=== PATIENT | male | born 1970 | race Caucasian/White ===

== ENCOUNTER → 2017-01-10 | Day surgery (SDC) | payer OTHER ==
[2016-12-26 11:06] VITALS: Ht 190.5 cm; Wt 102.3 kg
[~2017-01-10] VITALS: Ht 190.5 cm; Wt 102.3 kg
[~2017-01-10] MED LIST: ALFU10TA30 PO; ATROPINE SULFATE 0.1 MG/ML 5ML SYR IV PRN; BUPIVACAINE/EPINEPHRINE 0.5% MPF 1:200,000 30 ML VIAL ONE; CEFAZOLIN 2000 MG/60 ML D5W IV SCH; DEXAMETHASONE SOD INJ 4 MG/ML VIAL ONE; EpHEDrine SULFATE INJ 50 MG/ML AMP IV PRN; FENTANYL CITRATE INJ 50 MCG/1 ML 2 ML VIAL IV PRN; FENTANYL CITRATE INJ 50 MCG/1 ML 2 ML VIAL ONE; GLYCOPYRROLATE INJ 0.2 MG/ML VIAL ONE; HEPARIN SOD 5000 UNIT/0.5 ML CARP SQ SCH; HYDR-5688 PO; HYDROCODONE/ACETAMOPHEN 5/325MG TAB PO PRN; LACTATED RINGER'S 1000ML 1,000 ML IV SCH; LIDOCAINE HCL 2% 2 ML VIAL (20MG/ML) ONE; LORA-741 PO; MIDAZOLAM HCL 1 MG/ML 2ML VIAL ONE; MoRPHine SULFATE 4 MG/ML 1 ML CARP\\VIAL IV PRN; NEOSTIGMINE METHYLSULFATE 5 MG/5 ML SYR ONE; ONDANSETRON INJ 2 MG/ML 2 ML VIAL IV PRN; ONDANSETRON INJ 2 MG/ML 2 ML VIAL ONE; PROPOFOL IV EMULSION 10 MG/ML 20 ML VIAL IV ONE; ROCURONIUM BROMIDE 10 MG/ML 5 ML VIAL ONE; SUCCINYLCHOLINE 100MG/5ML SYR IV ONE
--- NOTE | 2017-01-10 06:50 | History & Physical Bridge Note ---
H&P Re-Evaluation Bridge Note: I have examined the patient, reviewed the History & Physical and in the interval since the performance of the History & Physical I have noted the following changes of clinical significance: No changes noted
--- NOTE | 2017-01-10 06:51 | [facility] Operative Report ---
Operative Report Operative Date Jan 10, 2017. Pre-Operative Diagnosis b/l inguinal hernias Post-Operative Diagnosis same Procedure(s) Performed open b/l inguinal hernia repair with mesh Findings b/l inguinal hernias Anesthesia general Complication(s) None Disposition Recovery Room / PACU I attest to the content of the Intraoperative Record and any orders documented therein. Any exceptions are noted below.
--- NOTE | 2017-01-10 06:54 | Discharge Instructions ---
Discharge Instructions Admission Reason for Admission: bilateral Inguinal Hernia Discharge Discharge Diagnosis / Problem: bilateral inguinal hernias Discharge Goals Goal(s): Decrease discomfort, Improve function Activity Recommendations Activity Limitations: as noted below Lifting Limitations: no more than 10 pounds Exercise/Sports Limitations: until after follow-up appointment May Resume Sexual Activity: after follow-up appointment Shower/Bathe: tomorrow . Instructions / Follow-Up Instructions / Follow-Up follow up dr. ott in 1-2 weeks or as scheduled. Current Hospital Diet Patient's current hospital diet: Discharge Diet Recommended Diet: Regular Diet Procedures Procedures Performed: open bilateral inguinal hernia repairs with mesh Pending Studies Studies pending at discharge: no Medical Emergencies . Who to Call and When: Medical Emergencies: If at any time you feel your situation is an emergency, please call 911 immediately. . Non-Emergent Contact Non-Emergency issues call your: Primary Care Provider, Surgeon Call Non-Emergent contact if: temperature is above 101, wound has increased drainage, wound has increased redness, wound has increased pain . "Provider Documentation" section prepared by Favian Ott. VTE Core Measure Inpt VTE Proph given/why not?: SCD's
--- NOTE | 2017-01-10 09:13 | OPERATIVE REPORT ---
DATE OF OPERATION: 01/10/2017 PREOPERATIVE DIAGNOSIS: Bilateral inguinal hernias. POSTOPERATIVE DIAGNOSIS: 1. Bilateral direct inguinal hernias. 2. Bilateral cord lipomas. PROCEDURE: 1. Open bilateral inguinal hernia repair with mesh. 2. Excision of bilateral cord lipomas. SURGEON: Dr. Ott. FINANCIAL SALES REPRESENTATIVE: Iftikhar Mckeon PA-C. ESTIMATED BLOOD LOSS: Approximately 20 mL. COMPLICATIONS: No immediate. ANESTHESIA: Laryngeal mask airway converted during the procedure to general with intubation. COMPLICATIONS: No immediate. OPERATIVE NOTE: After informed consent was obtained, the patient was taken to the operating suite and placed in supine position. Originally laryngeal mask airway was placed; however, during the procedure because of muscular tightness and breathing issues they converted to a full intubation. Once this was performed, the lower abdomen was shaved and sterilely prepped and draped in usual fashion. I began on the right side. I made an incision with 15 blade scalpel in the inguinal region and carried it down through the soft tissue using electrocautery. The external oblique aponeurosis was skeletonized and a small incision was made in it with a fresh blade. This was extended distally through the external ring using Metzenbaum scissors as well as for several centimeters proximally. Once in the inguinal canal, we bluntly dissected the cord and cord structures free from surrounding structures. I was able to bluntly get my finger around the cord structures and elevate them off the pubic bone and place a Natasha around them. As soon as we did this, we noted a rather large direct inguinal defect. In fact, the entire floor of the inguinal canal was a laxity with protrusion of hernia. This was easily reducible. We did inspect the cord and cord contents. There was no indirect hernia defect; however, there was a moderate size cord lipoma. We were able to take this off the cord structures using small amounts of electrocautery as well as traction countertraction. We clamped it off at its neck and excised it, tied it off with 3-0 silk and passed off the lipoma. We thoroughly irrigated the wound. We then placed a polypropylene ferro holed mesh as an onlay. It was secured distally to Fabricio's ligament, laterally along the shelving portion of Poupart's ligament and medially along the midline musculature. The "arms" of the mesh were wrapped around behind the cord and cord structures and again secured to underlying muscle. At the end of procedure the mesh laid tension free without impinging on the cord. We did another irrigation and then injected Marcaine around the edges of the mesh for postoperative analgesia. At the end of the procedure, there was adequate hemostasis. We closed the external oblique aponeurosis with 2-0 Vicryl in a running fashion. Soft tissue was irrigated and closed using 3-0 Vicryl and 4-0 Monocryl was used to close the skin. Some additional Marcaine was injected around the incision itself for postoperative analgesia and Dermabond glue used as a dressing. I then switched to the other side. We essentially performed the exact same procedure. I made an inguinal incision with a new blade and carried it down through the soft tissue and skeletonize the external oblique aponeurosis. Again, a fresh scalpel was used to open it and was extended with Metzenbaum scissors through the ring as well as several centimeters proximally. With the exact same scenario after I dissected the cord off the pubic bone and placed a Natasha around it there was a very large direct defect. We did inspect the cord and cord structures and again there was a lipoma. The lipoma on the left side was smaller than the one on the right side but nonetheless we took it down, excised it in similar fashion. We inspected the cord for indirect hernia sac and again there was no evidence of this. We thoroughly irrigated the wound and used the same polypropylene mesh, securing it to the same locations, Fabricio's ligament distally, shelving portion of the inguinal ligament laterally and the musculature medially. Again, we placed the arms of the mesh behind the cord structures and secured it to underlying muscle. There was no tension on the cord itself and the mesh was nice and tension free. Final irrigation was performed. Again, we injected Marcaine around the edges of the mesh for analgesia. We then closed the external oblique aponeurosis with 2-0 Vicryl in a running fashion. Soft tissue was irrigated and closed using 3-0 Vicryl and skin was closed using 4-0 Monocryl. Marcaine was also injected around the skin and Dermabond glue used as a dressing. The patient was awakened, extubated, and transferred to recovery in stable condition. I attest to the content of the Intraoperative Record and any orders documented therein. Any exceptio ns are noted below.
[2017-01-10 09:43] VITALS: TEMP 36.5
[2017-01-10 10:41] VITALS: BP 119/77; PULSE 71; O2SAT 95
--- NOTE | 2017-01-10 10:46 | Anesthesia Progress Nt - [facility] ---
Anesthesia Post Op Note Date & Time Jan 10, 2017 at 10:46 Vital Signs Pain Intensity: 0 Vital Signs Past 12 Hours Date Time Temp Pulse Resp B/P Pulse Ox O2 Delivery O2 Flow Rate FiO2 01/10/17 10:41 71 16 119/77 95 Room Air 01/10/17 10:16 85 16 120/81 94 Room Air 01/10/17 09:43 36.5 95 16 110/72 95 Room Air 01/10/17 09:30 98 13 95 01/10/17 09:30 98 13 01/10/17 09:29 110/80 01/10/17 09:25 97 12 01/10/17 09:25 97 12 95 01/10/17 09:24 107/79 01/10/17 09:20 91 13 99 01/10/17 09:20 91 13 01/10/17 09:19 Room Air 01/10/17 09:19 122/79 01/10/17 09:15 98 19 96 01/10/17 09:15 92 19 01/10/17 09:14 120/76 01/10/17 09:10 100 15 01/10/17 09:10 101 15 98 01/10/17 09:09 114/84 01/10/17 09:05 102 16 01/10/17 09:05 102 16 97 01/10/17 09:04 106/79 01/10/17 09:00 98 21 01/10/17 09:00 96 21 94 01/10/17 08:59 114/80 01/10/17 08:55 102 18 01/10/17 08:55 102 18 97 01/10/17 08:54 106/65 01/10/17 08:53 118/78 01/10/17 08:50 36.9 101 16 118/78 98 Diffusion Mask 6 01/10/17 06:46 36.5 85 16 121/85 96 Room Air Notes Mental Status: alert / awake / arousable, participated in evaluation Pt Amnestic to Procedure: Yes Nausea / Vomiting: adequately controlled Pain: adequately controlled Airway Patency, RR, SpO2: stable & adequate BP & HR: stable & adequate Hydration State: stable & adequate Anesthetic Complications: no major complications apparent
== END | disposition home or self-care (01) ==
LOC: X.SURG 06:30
PROVIDERS: ATTEND Surgery
DX: K40.20 Bilateral inguinal hernia, without obstruction or gangrene, not specified as recurrent (principal); D17.6 Benign lipomatous neoplasm of spermatic cord; M62.08 Separation of muscle (nontraumatic), other site; N40.0 Benign prostatic hyperplasia without lower urinary tract symptoms; Z87.891 Personal history of nicotine dependence

== ENCOUNTER → 2017-03-25 | Outpatient (CLI) | payer OTHER ==
[~2017-03-25] MED LIST changes: +ALFU10TA2 PO; -ALFU10TA30 PO; -ATROPINE SULFATE 0.1 MG/ML 5ML SYR IV PRN; -BUPIVACAINE/EPINEPHRINE 0.5% MPF 1:200,000 30 ML VIAL ONE; -CEFAZOLIN 2000 MG/60 ML D5W IV SCH; -DEXAMETHASONE SOD INJ 4 MG/ML VIAL ONE; -EpHEDrine SULFATE INJ 50 MG/ML AMP IV PRN; -FENTANYL CITRATE INJ 50 MCG/1 ML 2 ML VIAL IV PRN; -FENTANYL CITRATE INJ 50 MCG/1 ML 2 ML VIAL ONE; -GLYCOPYRROLATE INJ 0.2 MG/ML VIAL ONE; -HEPARIN SOD 5000 UNIT/0.5 ML CARP SQ SCH; -HYDROCODONE/ACETAMOPHEN 5/325MG TAB PO PRN; -LACTATED RINGER'S 1000ML 1,000 ML IV SCH; -LIDOCAINE HCL 2% 2 ML VIAL (20MG/ML) ONE; -MIDAZOLAM HCL 1 MG/ML 2ML VIAL ONE; -MoRPHine SULFATE 4 MG/ML 1 ML CARP\\VIAL IV PRN; -NEOSTIGMINE METHYLSULFATE 5 MG/5 ML SYR ONE; -ONDANSETRON INJ 2 MG/ML 2 ML VIAL IV PRN; -ONDANSETRON INJ 2 MG/ML 2 ML VIAL ONE; -PROPOFOL IV EMULSION 10 MG/ML 20 ML VIAL IV ONE; -ROCURONIUM BROMIDE 10 MG/ML 5 ML VIAL ONE; -SUCCINYLCHOLINE 100MG/5ML SYR IV ONE
== END | disposition home or self-care (01) ==
LOC: C.PATHSPEC 17:36
PROVIDERS: ATTEND Ophthalmology
DX: D23.11 Other benign neoplasm of skin of right eyelid, including canthus (principal)

== ENCOUNTER → 2017-07-30 | Outpatient (CLI) | payer OTHER ==
[~2017-07-30] MED LIST changes: -ALFU10TA2 PO; +ALFU10TA30 PO; -HYDR-5688 PO
--- NOTE | 2017-07-30 16:00 | DIAGNOSTIC IMAGING REPORT ---
RIGHT KNEE 1 OR 2 VIEWS ROUTINE CLINICAL HISTORY: Right knee pain. COMPARISON: None FINDINGS: Alignment of the right knee is anatomic. No fracture or suspicious osseous lesion is present. There is a small right knee joint effusion. Joint spaces are preserved. There is minimal osteophytosis of the patellofemoral compartment. IMPRESSION: 1. No acute fracture. 2. Small right knee joint effusion. 3. Preserved right knee joint spaces. Electronically signed by: Melquiades Gordon M.D. 07/30/2017 3:59 PM Dictated Date/Time: 07/30/2017 3:58 PM
[2017-07-30 17:07] LABS: BASO % 0.3 %; BASO ABS # 0.02 K/uL (0-0.2); COMPLETE YES; EOS % 1.9 %; HEMATOCRIT 45.6 % (42-52); IG% 0.3 %; LYMPH % 20.3 %; LYMPH ABS # 1.36 K/uL (1.2-3.4); MEAN CORPUSCULAR HEMOGLOBIN 31.3 pg (25-34); MEAN PLATELET VOLUME 11.2 fL (7.4-10.4); MONO % 6.1 %; NEUT % 71.1 %; PLATELET COUNT 177 K/uL (130-400); RED BLOOD COUNT 5.24 M/uL (4.7-6.1); WHITE BLOOD COUNT 6.69 K/uL (4.8-10.8)
[2017-07-30 17:39] LABS: ALT/SGPT 35 U/L (12-78); AST/SGOT 17 U/L (15-37); BLOOD UREA NITROGEN 15 mg/dl (7-18); CALCIUM 8.8 mg/dl (8.5-10.1); CARBON DIOXIDE 30 mmol/L (21-32); CHLORIDE 103 mmol/L (98-107); GLUCOSE 109 mg/dl (70-99); POTASSIUM 4.1 mmol/L (3.5-5.1); SODIUM 138 mmol/L (136-145)
[2017-07-30 17:42] LABS: ALB/GLOB RATIO 1.4 (0.9-2); ALKALINE PHOSPHATASE 62 U/L (45-117)
[2017-07-31 06:14] LABS: ESTIMATED AVERAGE GLUCOSE 126 mg/dl; HA1C FLAG Normal (Normal)
== END | disposition home or self-care (01) ==
LOC: C.RAD 14:55
PROVIDERS: ATTEND Nurse Practitioner Family
DX: E11.9 Type 2 diabetes mellitus without complications (principal); Z13.220 Encounter for screening for lipoid disorders; M25.561 Pain in right knee; M25.461 Effusion, right knee

== ENCOUNTER → 2018-07-04 | Outpatient (CLI) | payer OTHER ==
[~2018-07-04] MED LIST changes: +ALFU10TA2 PO; -ALFU10TA30 PO
[2018-07-04 13:05] LABS: ALKALINE PHOSPHATASE 55 U/L (45-117); ALT/SGPT 49 U/L (12-78); AST/SGOT 18 U/L (15-37); BLOOD UREA NITROGEN 13 mg/dl (7-18); CALCIUM 8.5 mg/dl (8.5-10.1); CARBON DIOXIDE 29 mmol/L (21-32); CHOLESTEROL 141 mg/dl (0-200); CREATININE 0.96 mg/dl (0.60-1.40); GLUCOSE 126 mg/dl (70-99); LDL CHOLESTEROL CALCULATED 72 mg/dl; POTASSIUM 4.5 mmol/L (3.5-5.1); SODIUM 141 mmol/L (136-145)
[2018-07-06 06:46] LABS: HEMOGLOBIN A1C 6.5 % (4.5-5.6)
== END | disposition home or self-care (01) ==
LOC: C.LAB1850 10:34
PROVIDERS: ATTEND Nurse Practitioner Family
DX: E11.9 Type 2 diabetes mellitus without complications (principal); R20.0 Anesthesia of skin